=== PATIENT | male | born 1950 | race Two or more races ===

== ENCOUNTER 2024-01-28 09:24 | Outpatient (RCR) | payer MEDICARE, SELFPAY ==
[2024-01-21 10:45] VITALS: BP 172/81; PULSE 61; RESP 17; TEMP 36.9; O2SAT 98; BMI 28.0
[2024-01-21] MEDS: ferumoxytoL (NON-ESRD) 510 MG in SODIUM CHLORIDE 0.9% 100 ML 234 MG IV (13:20)
[2024-01-21 14:30] VITALS: BP 167/71; PULSE 60; RESP 18; TEMP 36.6; O2SAT 99
[2024-01-28 09:53] VITALS: BP 152/69; PULSE 66; RESP 18; TEMP 36.9; O2SAT 98; BMI 28.0
[2024-01-28] MEDS: ferumoxytoL (NON-ESRD) 510 MG in SODIUM CHLORIDE 0.9% 100 ML 234 MG IV (10:12)
[2024-01-28 10:55] VITALS: BP 155/72; PULSE 62; RESP 18; TEMP 36.7; O2SAT 97
== END 2024-02-19 23:59 | disposition home or self-care (01) ==
LOC: SFLEX 09:24
PROVIDERS: Referring Provider Internal Medicine; Visit Provider Internal Medicine
PROC: (CPT 96365; principal; 2024-01-21 09:30)
DX: N18.31 Chronic kidney disease, stage 3a (principal); D63.1 Anemia in chronic kidney disease
CPT/HCPCS: 96365; 96366; J7050; Q0138